=== PATIENT | female | born 1970 | race African-American/Black ===

== ENCOUNTER → 2017-02-23 | Outpatient (CLI) | payer MEDICAID, MEDICARE, OTHER ==
[~2017-02-23] MED LIST: DIVA250T PO; IPRASOL INH; LEVO.15 PO; LEXA20TA PO; METF1000 PO; METF500T PO; MOBI15TA PO; MULT-65 PO; ONCETAB7; RISP1TAB2 PO; TRIA37.5 PO; VICT18IN SQ
[2017-02-23 13:32] LABS: MEAN CELL VOLUME 94.5 FL (80.0-100.0); MEAN CORPUSCULAR HEMOGLOBIN 31.2 PG (27.0-34.0); PLATELET COUNT 287 TH/MM3 (150-450); RED BLOOD COUNT 4.02 MIL/MM3 (4.00-5.30); RED CELL DISTRIBUTION WIDTH 15.5 % (11.6-17.2); REVIEW FLAG FINAL; WHITE BLOOD COUNT 6.6 TH/MM3 (4.0-11.0)
[2017-02-23 13:39] LABS: BLOOD, URINE NEG (NEG); GLUCOSE,URINE 1000 mg/dL (NEG); KETONE, URINE TRACE mg/dL (NEG); MUCUS URINE FEW /lpf (OCC); NITRITE,URINE NEG (NEG); PH, URINE 5.5 (5.0-8.5); SQUAMOUS EPITHELIAL CELL URINE <1 /hpf (0-5); URINE COLOR YELLOW (YELLW/STRAW)
[2017-02-23 13:55] LABS: ANION GAP 6 MEQ/L (5-15); AST (GOT) 19 U/L (15-37); BLOOD UREA NITROGEN 10 MG/DL (7-18); CHLORIDE 105 MEQ/L (98-107); GLOMERULAR FILTRATION RATE 82 ML/MIN (>89); GLUCOSE,FASTING 217 MG/DL (74-99); POTASSIUM 3.8 MEQ/L (3.5-5.1); SODIUM (NA) 137 MEQ/L (136-145)
[2017-02-23 13:56] LABS: ALT (GPT) 22 U/L (10-53)
[2017-02-23 14:06] LABS: ALKALINE PHOSPHATASE 89 U/L (45-117); TOTAL BILIRUBIN ADULT 0.6 MG/DL (0.2-1.0)
--- NOTE | 2017-02-24 11:29 | EKG ---
Date Performed: 02/23/2017 Time Performed: 12:43:47 PTAGE: 47 years EKG: Sinus rhythm NORMAL ECG NO PREVIOUS TRACING DOCTOR: Memo Burrell Interpretating Date/Time 02/24/2017 11:28:54
== END ==
LOC: CPRE 12:20
PROVIDERS: ATTEND Obstetrics & Gynecology
DX: Z01.812 Encounter for preprocedural laboratory examination (principal); Z01.810 Encounter for preprocedural cardiovascular examination; N94.6 Dysmenorrhea, unspecified; N92.1 Excessive and frequent menstruation with irregular cycle; D25.9 Leiomyoma of uterus, unspecified; D64.9 Anemia, unspecified
CPT/HCPCS: 36415; 80053; 81001; 84443; 85027; 93005

== ENCOUNTER 2017-03-01 14:14 | Day surgery (SDC) | payer MEDICARE, MEDICAID ==
[~2017-03-01] VITALS: Ht 172.7 cm; Wt 117.7 kg
[~2017-03-01 14:14] MED LIST changes: -DIVA250T PO; -METF500T PO; -ONCETAB7
[2017-03-01] MEDS ORDERED: LIDOCAINE HCL 1% PF 5 ML AMPULE OTHER ONE (14:22)
[2017-03-01] MEDS ORDERED: ONDANSETRON HCL 4 MG/2 ML VIAL IV PUSH ONE (14:22)
[2017-03-01] MEDS ORDERED: PROPOFOL 200 MG/20 ML AMP IV ONE (14:22)
[2017-03-01] MEDS ORDERED: CHLORHEXIDINE GLUCONATE 2 % 1 PACK (2 CLOTHS) TOPICAL PRN (14:45)
[2017-03-01] MEDS ORDERED: INSULIN HUMAN REGULAR 1,000 UNITS/10 ML VIAL SQ PRN (14:45)
[2017-03-01] MEDS ORDERED: SODIUM CHLORID 0.9% 500 ML IV PRN (14:45)
[2017-03-01] MEDS ORDERED: POVIDONE IODINE 5% (ANTISEPSIS KIT) 4 APPLICATIONS EACH NARE PRN (14:45)
[2017-03-01] MEDS ORDERED: LACTATED RINGER'S 1000 ML IV PRN (14:45)
[2017-03-01] MEDS ORDERED: METOPROLOL TARTRATE 25 MG TAB PO PRN (14:45)
[2017-03-01] MEDS ORDERED: ACETAMINOPHEN 1000 MG/100 ML 100 ML IV ONE (16:28)
[2017-03-01] MEDS ORDERED: FAMOTIDINE 20 MG/2 ML VIAL ONE (16:28)
[2017-03-01] MEDS ORDERED: MIDAZOLAM HCL 2 MG/2 ML VIAL ONE (16:28)
[2017-03-01] MEDS: LACTATED RINGER'S 1000 ML INJ 1,000 ML IV SCH (17:39)
[2017-03-01] MEDS ORDERED: *diphenhydrAMINE HCL 50 MG/ML VIAL PERIprocedural Use ONLY ONE (17:47)
[2017-03-01] MEDS ORDERED: *morphine SULFATE 8 MG/ML PERIprocedure ONLY ONE ×3 (17:48→18:23)
[2017-03-01] MEDS ORDERED: DO NOT ADM ANY ANTICOAGULANT DRUGS PRN (18:45)
[2017-03-01] MEDS ORDERED: ACETAMINOPHEN/HYDROcodone 325 MG/5 MG TAB PO PRN (18:45)
[2017-03-01] MEDS ORDERED: ONDANSETRON HCL 4 MG/2 ML VIAL IV PUSH PRN (18:45)
[2017-03-01 19:30] VITALS: BP 148/82; PULSE 82; RESP 14; TEMP 98.3; O2SAT 97
--- NOTE | 2017-03-02 08:07 | MP ---
cc: LUCIO HERBERT DATE OF SURGERY 01 March 2017 PREOPERATIVE DIAGNOSES 1. Menometrorrhagia. 2. Dysmenorrhea. 3. Fibroid uterus. POSTOPERATIVE DIAGNOSES 1. Menometrorrhagia. 2. Dysmenorrhea. 3. Fibroid uterus. 4. Submucous myoma x2. PROCEDURE Examination under anesthesia, dilation and curettage of the uterus with MyoSure myomectomy x2, hysteroscopic exam, endometrial ablation. ANESTHESIA General endotracheal intubation. SURGEON Yin Herbert MD FINDINGS On examination under anesthesia, the vagina was clean. The cervix was large, parous, without lesions. The uterus was not palpable. The adnexa had no masses. The hysteroscopic exam revealed a slightly enlarged uterine cavity that measures 9 cm. Anteriorly there were two small 7-8 mm submucous myomas which were removed. Otherwise the endometrium looked normal. The endometrial ablation was carried out with the a length of 5.5 and a width of 5.8. COMPLICATIONS None. COUNTS Correct. ESTIMATED BLOOD LOSS Minimal. DISPOSITION The patient tolerated the procedure well and went to the recovery room in good condition. PROCEDURE IN DETAIL The patient was taken to the operating room, identified by name band and verbally given a general anesthetic and placed in dorsal lithotomy position. A time-out was taken and her urinary bladder was drained with in-and-out cath. Examination under anesthesia was carried out with the above findings and a weighted speculum was placed in the vagina. The anterior lip of the cervix was grasped with a single-tooth tenaculum. The cervix was serially dilated without difficulty and the hysteroscope was inserted. We did notice that she did have two small submucous myomas which with the MyoSure device we removed. Using the MyoSure device we completed the D&C and got a good sample of all the tissue. I suspect nothing serious is wrong here. Once we removed the two myomas and got good tissue from all the quadrants, we inserted the endometrial ablation device and with a width of 5.8 and a length of 5.5, we ablated the endometrium with excellent results. The instruments were removed. She tolerated the procedure well. She went to Recovery in good condition. She did get IV Tylenol. R. MD EDUARDO Robles/MCKINLEY /7:10 PM /7:48 AM
== END 2017-03-01 20:05 | disposition home or self-care (01) ==
LOC: HSDC 14:14 → EDUNIT# 16:00 → HSDC 20:05
PROVIDERS: ATTEND Obstetrics & Gynecology
DX: N92.1 Excessive and frequent menstruation with irregular cycle (principal); N94.6 Dysmenorrhea, unspecified; D25.0 Submucous leiomyoma of uterus
CPT/HCPCS: 00952; 58561; 58563; 88305; J0131; J1200; J2250; J2270; J2405; J3010; J7120